=== PATIENT | male | born 1980 | race Caucasian/White ===

== ENCOUNTER 2018-11-19 19:37 | Inpatient (IN) | payer BC, OTHER ==
[~2018-11-19] VITALS: Ht 180.3 cm; Wt 86.2 kg
--- NOTE | 2018-11-19 20:30 | NUR ---
PRE ADMISSION NOTE Pt is a 38 y/o male seen at intake. Pt is A&Ox4 and ambulatory with steady gait. Pt presents with anxiety, restlessness, and is fidgety. Pt reports being anxious and states, "I hate hospitals so much and this is my first time in detox." Pt is here for methadone 20-30 mg daily, last intake of 30 mg at 1230 p.m. today. Pt has been using methadone at this rate for 2 years and total for 12 years. Pt also smokes methamphetamine 0.5-1g per week and reports using approximately 4-5 days of the week, last intake this morning. Pt has been using methamphetamine at this rate and for a total of 6-9 months. NKA, denies seizure hx, and reports PMH of anxiety and chronic back pain. Vital signs: BP 151/99, HR 150, RR 18, 02 95%, T 98.2, Pain 0/10. Pt is stable to arrive on the unit.
[2018-11-19] MEDS ORDERED: ONDANSETRON 4 MG/2 ML VIAL IM PRN (21:00)
[2018-11-19] MEDS ORDERED: ONDANSETRON ODT 4 MG TAB.RAPDIS SL PRN (21:00)
[2018-11-19] MEDS ORDERED: BUPRENORPHINE HCL 2 MG TAB.SUBL SL PRN (21:00)
[2018-11-19] MEDS ORDERED: LOPERAMIDE HCL 2 MG CAPSULE PO PRN ×2 (21:00)
[2018-11-19] MEDS ORDERED: MAGNESIUM HYDROXIDE 30 ML LIQUID UDC PO PRN (21:00)
[2018-11-19] MEDS ORDERED: ACETAMINOPHEN 325 MG TABLET PO PRN (21:00)
[2018-11-19] MEDS ORDERED: MIRALAX 17 GM POWD.PACK PO PRN (21:00)
[2018-11-19] MEDS ORDERED: MAG HYDROX/AL HYDROX/SIMETH 30 ML LIQUID UDC PO PRN (21:00)
[2018-11-19] MEDS: MULTIVITAMINS,THERAPEUTIC TABLET PO SCH (21:31)
[2018-11-19] MEDS: LORAZEPAM 1 MG TABLET PO PRN (21:31)
[2018-11-19] MEDS: diphenhydrAMINE 50 MG CAPSULE PO PRN (21:31)
--- NOTE | 2018-11-19 21:31 | NUR ---
PRN ATIVAN 2mg & PRN BENADRYL Patient reports difficulty sleeping and is currently experiencing high levels of anxiety and agitation. Patient is flushed and shaky with flight of ideas. Patient states that he fears hospitals and needles and that he feels very uncomfortable given his current situation. Patient is cooperative and willing to participate despite his anxiety. PRN Ativan 2mg given PO for agitation and restlessness, PRN Benadryl 50mg given PO for difficulty sleeping. Safety measures in place, side rails up x2, bed locked in low position, call light within reach. Will monitor for effectiveness.
--- NOTE | 2018-11-19 22:30 | NUR ---
ADMISSION NOTE Patient is a 38-year-old male admitted on 11/19/18 for medically supervised opiate (methadone) withdrawal, on the unit at 2058. Patient was seen at intake by CHANDAN Mackenzie, for the pre-admission assessment. Patient reports that he has ingested Methadone PO today, as well as methamphetamine via smoke inhalation, both earlier this afternoon. Patient is alert and oriented x4, coherent with a steady gait. Patient is mildly intoxicated with moderate discomfort noted. Patient has high anxiety, is flushed and visibly diaphoretic. Patient is hyperverbal and restless. Patient verbalizes fear of hospitals and needles. Patient reports that common withdrawal symptoms include: headaches, can't sleep, low energy, I feel like shit. Initial COWS 5. Substance Abuse History 1. Methadone 20-30mg PO daily for 3 years. Patient first started using methadone when he was 31 and was sober for one year during [id number]. Patient has been using methadone for 7 years. Last use was 11/19/18 at 1230 of 10 mg PO, and then earlier in the morning of 20mg PO. Patient states that when he first started methadone at age 31 for pain management, he started at 120mg and tapered himself down to 10mg daily, over the course of 4 years, before ceasing to use methadone for one year. Then, three years ago, patient states that his lower back pain was aggravated and he began using methadone for pain management at the current rate of 20-30mg daily PO. 2. Methamphetamine 0.5-1 gram daily via smoke inhalation, at this rate for 6 months; first started 9 months ago. Last use was 11/19/18 of approx. 0.2 gram. Patient states that he has never been to treatment or detox before. 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 I need to find better ways to deal with stress because my job is very stressful and I cant keep doing meth and taking methadone. Patient added, who starts using meth when theyre 38? 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 Patient verbalizes frustration and guilt from the many unsuccessful attempts at fertility, as well as the financial strain of all the various treatments the two have pursued. Patient became emotional and tearful when telling nurse about his struggles. Patient states he is seeking treatment today because "I need to do this." Patient elaborates, "I need to do this for myself, my son and my girlfriend. I have too much at stake. I don't want to lose it all." Patient states that part of his motivation comes from an upcoming milestone, "I'm going to be 39 this year and I really feel like I need to get my life together before 39." Patient states that his mother, brother, girlfriend and son are all his support system and he feels adequately supported. Patient states that the main barriers to maintaining sobriety would be back pain and stress, but he verbalizes willingness to address both in a healthy manner. Past medical history includes anxiety and lower back injury that has occurred over the past decade, according to patient. 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 My L4 and L5 vertebrae need surgery but Crystal been avoiding it because I dont like hospital and because Crystal heard that people are sometimes worse off after back surgery. Patient continues, Crystal been avoiding surgery but I think I might just have to do it if I want to stay off the methadone or any other pain medication. Patient reports no other medical history. Patient did have one surgery as a child, tonsillectomy, but has not been hospitalized since. Patient does not have a PCP and does not have a psychologist or psychiatrist. Patient takes a daily multivitamin, Mens One a Day, and a daily probiotic (10 billion units). Patient denies family history of substance abuse and states, "all my mom's side are smokers." But later during conversation, patient added that his brother recently went through the same thing with methadone, and hes clean now after seeking treatment. Patient lives at his home in [place] with his 14-year-old son and his girlfriend, Pia, of 12 years. Patient states he has had difficulty sleeping since he began using methamphetamines 9 months ago, but especially the past 3 months. Patient reports, I have a hard time falling asleep, staying asleep, and I wake up in a bad mood. I sleep less than 5 hours a night and its not enough for me. Patient states that he occasionally uses OTC melatonin to help him sleep, which seems to be somewhat helpful. Upon assessment, patients skin is intact, warm to touch, turgor good, capillary refill <3 seconds. Patients lung sounds are clear bilaterally to auscultation, respirations even and unlabored; patient denies SOB or chest pain. Patients bowel sounds are normoactive x4 quadrants, abdomen soft and non-tender. Patient states that he has regular bowel movements, daily, last was this morning. Patient is 511 and weighs 190lbs per standing scale. Patient is NKA, FULL code, regular diet. Patient denies smoking or the use of tobacco products; denies cannabis use. Patient denies seizure history. Patient denies physical consequences of substance abuse such as overdose, blackouts, withdrawal induced delirium or cardiac complications. Patient denies suicidal or homicidal ideation. Initial vital signs taken by CHANDAN Mackenzie as follows: HR 150, BP 151/99, RR 18/min, O2 sat 95%, temp 98.2, pain 1/10. Upon arrival to the unit, patient skin check and body search performed; no contraband found. Patient was given a tour of the unit and shown to his room. Patient provided urine for UA but has refused blood draw due to intense fear of needles. Patient was given information about plan of care and treatment program, as well as teaching regarding unit policies, procedures and protocols. Patient verbalized understanding to instructions. Patient is on fall precautions. Safety measures in place, side rails up x2, bed locked in low position, call light within reach. Will continue to monitor.
--- NOTE | 2018-11-19 22:31 | NUR ---
PRN ATIVAN 2mg & PRN BENADRYL REASSESSMENT Patient reports "I feel more comfortable and relaxed now. I even feel like I can fall asleep." Patient appears less restless and less agitated. Patient has improved vitals, with HR at 82 and BP at 126/88. PRN Ativan and PRN Benadryl noted to be effective. Safety measures in place, side rails up x2, bed locked in low position, call light within reach. Will continue to monitor.
[2018-11-19 22:35] LABS: *AMPHETAMINE, URINE POSITIVE (NEGATIVE); *BARBITURATE, URINE NEGATIVE (NEGATIVE); *CANNABINOID, URINE NEGATIVE (NEGATIVE); *COCCAINE, URINE NEGATIVE (NEGATIVE); *OPIATE, URINE NEGATIVE (NEGATIVE); *PHENCYCLIDINE SCREEN,URINE NEGATIVE (NEGATIVE)
[2018-11-19] MEDS ORDERED: MULT-416 PO (23:42)
[2018-11-19] MEDS ORDERED: LACT1CAP97 PO (23:43)
[2018-11-20] VITALS: BP 118/78
[2018-11-20 04:00] VITALS: BP 113/74
--- NOTE | 2018-11-20 07:25 | NUR ---
END OF SHIFT Patient is a 38-year-old male admitted on 11/19/18 for opiate withdrawal. Patient does not have a taper order yet, PRN medications on hand for signs and symptoms of withdrawal. Patients last COWS was 5. Patient received PRN Benadryl and PRN Ativan 2mg; both noted to be effective. Patient slept for 8 hours, total intake of 300mL, void x 1, stool x0. Patient has yet to have blood drawn due to fear of needles. Patient is on fall precautions with no history of seizure. Safety measures in place, side rails up x2, bed locked in low position, call light within reach. Will endorse to day shift.
--- NOTE | 2018-11-20 07:40 | NUR ---
START OF SHIFT Received report from night baker nurse. Pt is lying in bed resting with eyes closed and is easily arousable. He is a 38 yo male admitted to [facility] on 11/19 for Methadone withdrawal. He is A&O and ambulatory with a steady gait. NKA, full code status, and on a regular diet. PRN medications ordered for the treatment of withdrawal symptoms. Pt last used Methadone yesterday at 1200. Respirations even and unlabored. Skin is warm and moist. He reports feeling tired and his body movements are hypoactive. Minimal other s/s of withdrawal noted at this time. PRN Benadryl and Ativan administered on night baker. His last COWS score was 5. He refused labs again this morning and requested to have them done after breakfast. Pt educted regarding compliance with the treatment plan. Safety measures in place.
[2018-11-20 08:00] VITALS: BP 116/77
[2018-11-20] MEDS ORDERED: TUBERCULIN,PURIF.PROT.DERIV. 5 TU/0.1 ML TEST ID ONE (09:00)
[2018-11-20] MEDS: MULTIVITAMINS,THERAPEUTIC TABLET PO SCH (09:00)
[2018-11-20 11:51] LABS: BASOPHILS # (AUTO) 0.1 K/uL (0.0-8.0); BASOPHILS % (AUTO) 1.2 % (0.0-2.0); EOSINOPHILS # (AUTO) 0.1 K/uL (0.0-0.7); EOSINOPHILS % (AUTO) 1.4 % (0.0-7.0); HEMATOCRIT 44.5 % (36.7-47.1); HEMOGLOBIN 15.4 g/dL (12.5-16.3); LYMPHOCYTES # (AUTO) 2.7 K/uL (20.0-40.0); LYMPHOCYTES % (AUTO) 36.6 % (20.5-51.5); MEAN CORPUSCULAR HEMOGLOBIN 31.1 uug (23.8-33.4); MEAN CORPUSCULAR HGB CONC 35 g/dL (32.5-36.3); MEAN CORPUSCULAR VOLUME 89.7 fL (73.0-96.2); MONOCYTES # (AUTO) 0.8 K/uL (2.0-10.0); MONOCYTES % (AUTO) 11.3 % (0.0-11.0); NEUTROPHILS # (AUTO) 3.6 K/uL (1.8-8.9); NEUTROPHILS % (AUTO) 49.5 % (38.5-71.5); PLATELET COUNT (AUTO) 372 K/uL (152-348); RED BLOOD CELL COUNT(AUTO) 4.96 MIL/uL (4.06-5.63); WHITE BLOOD COUNT (AUTO) 7.3 K/uL (3.6-10.2)
[2018-11-20 12:00] VITALS: BP 112/73
[2018-11-20 12:01] LABS: ALANINE AMINOTRANSFERASE 36 U/L (16-63); ALKALINE PHOSPHATASE 53 U/L (50-136); ASPARTATE AMINOTRANSFERASE 22 U/L (15-37); BILIRUBIN,TOTAL 0.5 mg/dL (0.2-1.0); CARBON DIOXIDE 31 mmol/L (21-32); CHLORIDE 105 mmol/L (98-107); CREATININE 1.3 mg/dL (0.6-1.3); ETHANOL < 3 MG/DL (0-0); GLUCOSE 105 mg/dL (74-106); MAGNESIUM 1.9 mg/dL (1.8-2.4); POTASSIUM 4.4 mmol/L (3.5-5.1); TOTAL PROTEIN, SERUM 7.2 g/dL (6.4-8.2); UREA NITROGEN, BLOOD 21 mg/dL (7-18)
[2018-11-20 12:23] LABS: THYROID STIMULATING HORMONE 0.709 mIU/mL (0.358-3.740)
[2018-11-20] MEDS ORDERED: ASPI-966 PO (12:39)
[2018-11-20] MEDS: METHOCARBAMOL 750 MG TABLET PO PRN (13:31)
[2018-11-20] MEDS: CLONIDINE HCL 0.1 MG TABLET PO PRN (13:32)
[2018-11-20] MEDS: LORAZEPAM 1 MG TABLET PO PRN (13:32)
--- NOTE | 2018-11-20 13:36 | NUR ---
PRN administration:pt is starting to exhibit mild withdrawal symptoms, Per MD administer comfort medications until pt is ready D/T methadone use. PRN clonidine, 2 MG ativan and robaxin were administered, pt exhibiting restlessness, flushed skin, back pain and verbalizing he is uncomfortable. will re-assess effectiveness of medication
--- NOTE | 2018-11-20 14:40 | NUR ---
PRN Ativan, Clonidine, and Ativan reassessment PRN medications effective. Pt is lying in bed resting with eyes closed. Respirations even and unlabored.
[2018-11-20 16:30] VITALS: BP 94/60
--- NOTE | 2018-11-20 19:28 | NUR ---
END OF SHIFT Report provided to embossing press operator nurse. Pt is lying in bed resting. He is a 38 yo male admitted to [facility] on 11/19 for Methadone withdrawal. He is A&O and ambulatory with a steady gait. NKA, full code status, and on a regular diet. PRN medications ordered for the treatment of withdrawal symptoms. Pt last used Methadone yesterday at 1200. He reported some s/s of withdrawal in the afternoon. Dr. Alamo aware and on the unit to see patient. He educated patient regarding Methadone use and starting Subutex. PRN Ativan, Clonidine, and Robaxin administered. His last COWS score was 8. He drank 1157mL. He spent most of the day resting in bed. Safety measures in place.
--- NOTE | 2018-11-20 19:30 | NUR ---
Start of shift note Received report from day shift nurse. Patient is a 38 year old male admitted for Opiate withdrawal. Patient is on Subutex taper to start tomorrow. Patient in the room . Alert and oriented x 3. Patient presents with flat affect, depressed mood, face is flushed, sad, worried, and emotional. Patient reports anxiety, intermitted perspiration and fatigue. Relaxation technique provided. Safety measures in place. Will continue to monitor.
[2018-11-20 20:00] VITALS: BP 109/68
[2018-11-20] MEDS: HYDROXYZINE PAMOATE 25 MG CAPSULE PO PRN (21:25)
--- NOTE | 2018-11-20 21:25 | NUR ---
PRN Vistaril and Benadryl administration Patient reports anxiety and difficulty falling asleep. Will monitor for effectiveness
[2018-11-20] MEDS: diphenhydrAMINE 50 MG CAPSULE PO PRN (21:26)
--- NOTE | 2018-11-20 22:30 | NUR ---
PRN Vistaril and Benadryl re-assessment Patient lying in bed with eyes closed. Respiration even and unlabored. Will continue to monitor
--- NOTE | 2018-11-21 | NUR ---
COWS deferred Patient lying in bed with eyes closed. Respiration even and unlabored. Will continue to monitor
--- NOTE | 2018-11-21 04:00 | NUR ---
COWS deferred Patient lying in bed with eyes closed. Respiration even and unlabored. Will continue to monitor
[2018-11-21] MEDS ORDERED: BUPRENORPHINE HCL 2 MG TAB.SUBL SL ONE (05:45)
--- NOTE | 2018-11-21 05:45 | NUR ---
One time Subutex and PRN Vistaril administration Patient woke up c/o increased anxiety, restlessness, irritability, sweating, feeling of discomfort, back pain, stuffy nose, abdominal cramping, chills. face is flushed and piloerection. COWS 15 upon assessment .
[2018-11-21] MEDS: HYDROXYZINE PAMOATE 25 MG CAPSULE PO PRN (05:48)
--- NOTE | 2018-11-21 06:15 | NUR ---
PRN Subutex SL re-assessment Patient states Subutex and Vistaril helpful and effective. He states he feels much better.
--- NOTE | 2018-11-21 06:45 | NUR ---
PRN Vistaril re-assessment Patient states he feels much better. Vistaril helpful and effective
--- NOTE | 2018-11-21 07:25 | NUR ---
End of shift note Monitored patient throughout shift. Patient presented with flat affect, depressed mood, face is flushed, sad, worried, emotional, withdrawn and labile. Patient reported anxiety, intermitted perspiration and fatigue. Patient was given PRN Benadryl and Vistaril. At 0545, patient woke up c/o increased anxiety, restlessness, irritability, sweating, feeling of discomfort, back pain, stuffy nose, abdominal cramping, chills. face is flushed and piloerection. COWS 15 upon assessment. One time Subutex and PRN Vistaril given, both effective. Encouraged fluids. Safety measures in place. Will continue to monitor. Slept 8 hours. Fluid intake 1,000 ml. Voided x 2. No BM.
[2018-11-21] MEDS: METHOCARBAMOL 750 MG TABLET PO PRN ×2 (07:56→16:19)
[2018-11-21] MEDS: IBUPROFEN 600 MG TABLET PO PRN ×2 (07:56→16:19)
[2018-11-21] MEDS: MULTIVITAMINS,THERAPEUTIC TABLET PO SCH (07:56)
[2018-11-21 08:00] VITALS: BP 116/73
--- NOTE | 2018-11-21 08:03 | NUR ---
START OF SHIFT: Received Pt A? O X 4. He presents with blunted affect and sad mood. He denies S/I and H/I. He reports anxiety,back pain 6/10 on scale aches and pain. Encouraged inc,sweats and muscle aches. COWS 9 PRN Robaxin and Motrin given to manage muscle aches and pain. Encouraged group attendance to improve coping skills and prevent relapse. Encouraged increased fluids to assist in facilitating detox process. Will continue to monitor and offer support.
[2018-11-21 08:07] LABS: HEPATITIS B SURFACE AG Negative (Negative)
--- NOTE | 2018-11-21 09:05 | NUR ---
Pt reports Motrin and Robaxin were mildly effective. Pain 2/10 on scale.
[2018-11-21 12:00] VITALS: BP 115/79
[2018-11-21] MEDS ORDERED: 5 DAY TAPER BUPRENORPHINE -SERENITY PROTOCOL SL PRN (13:00)
--- NOTE | 2018-11-21 15:32 | NUR ---
Therapist prompted client to attend group therapy.
[2018-11-21 16:00] VITALS: BP 124/65
[2018-11-21] MEDS: BUPRENORPHINE HCL 2 MG TAB.SUBL SL SCH ×2 (16:20→20:20)
--- NOTE | 2018-11-21 16:25 | NUR ---
Subutex taper started and administered. PRN Ibuprofen and PRN Robaxin administered to relieve back pain 5/10 and body aches.Will monitor effectiveness.
--- NOTE | 2018-11-21 17:25 | NUR ---
PRN Ibuprofen and PRN Robaxin effective. He reports pain 2/10 and body aches have lessened.
--- NOTE | 2018-11-21 19:04 | NUR ---
END OF SHIFT; Pt started Subutex taper to manage s/s of w/d which include body aches,back pain,chills ,sweats,anxiety and restlessness. Last COWS 10. He was given Motrin and Robaxin PRN X 2 to manage aches and pain and effective. He was compliant with increased fluids and isolated in his room most of shift. Will pass shift report to oncoming evening or night nurse supervisor nurse.
--- NOTE | 2018-11-21 19:30 | NUR ---
Start of shift note Received report from day shift nurse. Patient is a 38 year old male admitted for Opiate withdrawal. Patient was placed on Subutex taper, started today. Patient was given Motrin x 2 and Robaxin x 2. Last COWS 10. Patient in the room . Alert and oriented x 3. Patient presents with flat affect, depressed mood, face is flushed, sad, worried, and emotional. Patient reports anxiety, intermitted perspiration and fatigue. Relaxation technique provided and positive encouragement provided. Safety measures in place. Will continue to monitor.
[2018-11-21 20:00] VITALS: BP 126/85
[2018-11-21] MEDS: diphenhydrAMINE 50 MG CAPSULE PO PRN (20:20)
--- NOTE | 2018-11-21 20:20 | NUR ---
PRN Benadryl administration Patient requests for sleep aid. Will monitor for effectiveness
--- NOTE | 2018-11-21 22:00 | NUR ---
PRN Benadryl re-assessment Patient lying in bed with eyes closed. Respiration even and unlabored. Will continue to monitor
[2018-11-22] VITALS: BP 122/70
--- NOTE | 2018-11-22 | NUR ---
COWS deferred Patient lying in bed with eyes closed. Respiration even and unlabored. Will continue to monitor
[2018-11-22 04:00] VITALS: BP 113/75
--- NOTE | 2018-11-22 04:00 | NUR ---
COWS deferred Patient lying in bed with eyes closed. Respiration even and unlabored. Will continue to monitor
[2018-11-22] MEDS: IBUPROFEN 600 MG TABLET PO PRN (04:56)
[2018-11-22] MEDS: METHOCARBAMOL 750 MG TABLET PO PRN (04:56)
[2018-11-22] MEDS: HYDROXYZINE PAMOATE 25 MG CAPSULE PO PRN ×2 (04:56→13:25)
--- NOTE | 2018-11-22 04:56 | NUR ---
PRN Robaxin, Motrin and Vistaril administration Patient reports anxiety and back pain. Will monitor for effectiveness
--- NOTE | 2018-11-22 05:56 | NUR ---
PRN Robaxin, Motrin and Vistaril re-assessment Patient states medication are helpful and effective. He is less anxious and pain is lessened
--- NOTE | 2018-11-22 07:28 | NUR ---
End of shift note Patient alert and oriented x 4 . Patient presented with flat affect, depressed mood, face is flushed, sad, worried, and emotional. Patient reports anxiety, intermitted perspiration . Scheduled taper given as ordered. PRN Benadryl given for sleep. At 0456, patient woke up and was c/o anxiety and back pain. PRN Vistaril, Robaxin and Motrin given, effective. Safety measures in place. Will continue to monitor. Slept 6 hours. Fluid intake 1,200 ml. Voided x 3. No BM.
[2018-11-22 08:00] VITALS: BP 142/86
--- NOTE | 2018-11-22 08:07 | NUR ---
START OF SHIFT: Received Pt A/ O X 4. He presents fidgety with anxious mood and congruent affect. He reports anxiety,irritability,intermittent sweats and muscle aches. COWS 8. Encouraged group attendance to improve coping skills and prevent relapse. Encouraged increased fluids to assist in facilitating detox process. Will continue to monitor and offer support.
[2018-11-22] MEDS: MULTIVITAMINS,THERAPEUTIC TABLET PO SCH (08:43)
[2018-11-22] MEDS: BUPRENORPHINE HCL 2 MG TAB.SUBL SL SCH ×3 (08:43→20:16)
--- NOTE | 2018-11-22 09:46 | NUR ---
Therapist prompted client to attend all group therapy sessions.
--- NOTE | 2018-11-22 11:18 | NUR ---
Therapist prompted client to attend group therapy.
[2018-11-22 12:00] VITALS: BP 109/65
--- NOTE | 2018-11-22 13:26 | NUR ---
PRN Vistaril 50 mg PO given to manage reported anxiety and restlessness. Will monitor effectiveness
--- NOTE | 2018-11-22 14:30 | NUR ---
PRN Vistaril effective. Pt states his anxiety lessened.
[2018-11-22 16:00] VITALS: BP 129/91
[2018-11-22] MEDS: CLONIDINE HCL 0.1 MG TABLET PO PRN (17:14)
--- NOTE | 2018-11-22 18:41 | NUR ---
END OF SHIFT; Pt is on Subutex taper to manage s/s of w/d which include body aches, intermittent sweats,anxiety and restlessness. He becomes tearful ,sad and emotional and discussed how much he misses his family.Offered support. Encouraged him to stay and complete treatment plan. Last COWS 7. He was given Vistaril PRN to manage anxiety and it was effective. He was compliant with increased fluids and isolated in his room most of shift. Will pass shift report to oncoming hourly shift manager nurse.
--- NOTE | 2018-11-22 19:25 | NUR ---
START OF SHIFT Patient is a 38-year-old male admitted on 11/19/18 for opiate withdrawal. Patient is currently on a 5-day Subutex taper, tolerating well. Patient received PRN Vistaril and Clonidine today, but stated, they didnt do anything for me. Patients last COWS was 7 per endorsement. Upon assessment, patient reports increased anxiety related to the phone call he made prior to change of shift. Patient is tearful and emotional stating, I wanted to go straight home after detox but my girlfriend said I needed to go to treatment. I know shes right but I miss her and my son so much. Patient is curled up in bed, fidgety, slightly diaphoretic and with a look of resignation. Patient is on fall precautions with no history of seizure. Safety measures in place, side rails up x2, bed locked in low position, call light within reach. Will continue to monitor.
[2018-11-22] MEDS: diphenhydrAMINE 50 MG CAPSULE PO PRN (19:32)
--- NOTE | 2018-11-22 19:32 | NUR ---
PRN BENADRYL Patient states that the PRN Vistaril was not effective for anxiety and requested PRN Benadryl instead "so I can just sleep." PRN Benadryl 50mg given PO. Safety measures in place, side rails up x2, bed locked in place, call light within reach. Will monitor for effectiveness.
[2018-11-22 20:00] VITALS: BP 118/73
--- NOTE | 2018-11-22 20:32 | NUR ---
PRN BENADRYL REASSESSMENT Patient is observed in bed with eyes closed, respirations even and unlabored. PRN Benadryl noted to be effective. Safety measures in place, side rails up x2, bed locked in low position, call light within reach. Will continue to monitor.
[2018-11-23] VITALS: BP 112/69
[2018-11-23 04:00] VITALS: BP 109/68
[2018-11-23] MEDS: CLONIDINE HCL 0.1 MG TABLET PO PRN ×2 (04:33→22:59)
[2018-11-23] MEDS: IBUPROFEN 600 MG TABLET PO PRN ×2 (04:34→14:05)
--- NOTE | 2018-11-23 04:34 | NUR ---
PRN MOTRIN & CLONIDINE Patient reports chills, sweats, anxiety and headache 6/10 on pain scale. PRN Motrin and PRN Clonidine given PO. Safety measures in place, side rails up x2, bed locked in low position, call light within reach. Will monitor for effectiveness.
--- NOTE | 2018-11-23 05:34 | NUR ---
PRN MOTRIN & CLONIDINE REASSESSMENT Patient is observed sleeping in bed, eyes closed, respirations even and unlabored. Unable to reassess medication effectiveness at this time. Safety measures in place, side rails up x2, bed locked in low position, call light within reach. Will continue to monitor.
--- NOTE | 2018-11-23 07:15 | NUR ---
END OF SHIFT Patient is a 38-year-old male admitted on 11/19/18 for opiate withdrawal. Patient is currently on a 5-day Subutex taper, tolerating well. Today will be day 3 of taper. Patient received PRN Benadryl, noted to be effective. Patient later received PRN Motrin and Clonidine at 0430; noted to be effective. Patients last COWS was 7. Patient slept for 7 hours, total intake of 1,500mL, void x3, stool x0. Patient is on fall precautions with no history of seizure. Safety measures in place, side rails up x2, bed locked in low position, call light within reach. Will endorse to day shift.
--- NOTE | 2018-11-23 07:30 | NUR ---
Start of Shift Notes: Received endorsement from night nurse. Patient is a 38 year old male admitted for opiate withdrawal who was placed on a 5-day Subutex taper as ordered. No adverse reactions noted. Per night report, patient was given PRN Benadryl, Clonidine and Motrin during the night. Slept for 7 hours. Last COWS 7. Received patient in his room. Alert and verbally responsive. Oriented x 4. Denies S/I or H/I. No AV hallucinations noted. He is awake, emotionally labile. He states "I am missing home." He complains of chills, hot flashes, facial flushing noted, gross tremors, complains of intermittent sweating and complains of strong cravings. Redirected as needed. Educated patient on his current plan of care for the day and his medication regimen. Encouraged oral fluid intake and encouraged group participation to learn new skills to prevent relapse. Will continue to monitor.
[2018-11-23 08:00] VITALS: BP 108/54
[2018-11-23] MEDS: MULTIVITAMINS,THERAPEUTIC TABLET PO SCH (08:31)
[2018-11-23] MEDS ORDERED: BUPRENORPHINE HCL 2 MG TAB.SUBL SL SCH (09:00)
[2018-11-23 12:00] VITALS: BP 119/73
[2018-11-23] MEDS: BUPRENORPHINE HCL 2 MG TAB.SUBL SL SCH ×2 (14:05→20:39)
--- NOTE | 2018-11-23 14:05 | NUR ---
Motrin 600 mg PO given: Patient complained of a 5/10 headache. Non-pharmacological interventions provided but ineffective. Medicated patient with Motrin 600 mg PO as ordered. Will monitor for effectiveness.
--- NOTE | 2018-11-23 15:05 | NUR ---
Re-assessment: Motrin Patient verbalizes relief from headache and rates his pain a zero out of ten. PRN Motrin effective.
[2018-11-23 16:00] VITALS: BP 108/78
--- NOTE | 2018-11-23 19:11 | NUR ---
End of Shift Notes: Patient continues to be on 5-day Subutex taper as ordered. No adverse reactions noted. VS monitored closely. No significant abnormalities noted. Withdrawal symptoms were closely monitored. Initial COWS 10, patient presented with chills, hot flashes, facial flushing, anxiety, irritability, emotionally labile and generalized discomfort. Last COWS 8. Patient verbalizes that Subutex has been effective in reducing his withdrawal symptoms. He was able to participate in group and activities despite his withdrawal symptoms. Appetite good. All needs met and attended. Will continue to monitor closely. Addendum: 11/23/18 at 1916 by LACHELLE ARREGUIN LVN Additional end of shift note: PRN Motrin 600 mg PO given at 1405 for headache with help.
--- NOTE | 2018-11-23 19:30 | NUR ---
Start of shift note Pt is a 38 year old male admitted on 11/19/18 for medically supervised opiate withdrawal. Pt is on a 5 day Subutex taper started on 11/21/18. Pts last COWS was 8. Per endorsement pt had PRN Motrin during day shift. Pt has been compliant with plan of care and has attended treatment group. Pt continues to experience anxiety, agitation and mild tremors. Upon rounds pt was noted in room watching tv, explained plan of care and he verbalized understanding. Safety measures in place, bed locked in low position, side rails up x2, and call light within reach. Will continue to monitor.
[2018-11-23 20:00] VITALS: BP 122/79
[2018-11-23] MEDS: diphenhydrAMINE 50 MG CAPSULE PO PRN (20:39)
--- NOTE | 2018-11-23 20:39 | NUR ---
PRN Benadryl Pt was reporting difficulty falling asleep, administered PRN Benadryl and pt tolerated well and will continue to monitor. Pt in bed resting with lights off and watching tv, breathing is even and unlabored with no signs of distress. safety measures in place.
--- NOTE | 2018-11-23 21:39 | NUR ---
MARTIN Derasadryl Reassessment Pt was noted in bed resting with lights off but could not fall asleep r/t anxiety. Medication noted not to be effective. Will provide medication for anxiety. Pt is breathing even and unlabored and will continue to monitor. Safety measures in place.
[2018-11-23] MEDS: HYDROXYZINE PAMOATE 25 MG CAPSULE PO PRN (22:59)
--- NOTE | 2018-11-23 22:59 | NUR ---
PRN Clonidine and Vistaril Pt was presenting with anxiety and agitation and was not allowing pt to go to sleep. Administered PRN Clonidine and Vistaril and pt tolerated well. Safety measures in place and will continue to monitor.
--- NOTE | 2018-11-23 23:59 | NUR ---
PRN Clonidine and Vistaril Reassessment Pt was noted in bed resting with eyes closed, breathing even and unlabored. Medication noted to be successful. Safety measures in place and will continue to monitor.
--- NOTE | 2018-11-24 07:17 | NUR ---
End of shift note Pt is a 38 year old male admitted on 11/19/18 for medically supervised opiate withdrawal. Pt completed a 5 day Subutex taper. Pts last COWS was 9. Pt is on fall precautions. Pt had PRN Benadryl, Clonidine and Vistaril during this shift. Pt continues to present with anxiety, agitation and tremors. Pt was compliant with medication regimen and treatment plan. Pt slept for 5 hours and had a total of 1,473 ml. Pt voided x 1 and had no bowel movements during this shift. Safety measures in place, bed locked in low position, side rails up x2, and call light within reach. Will endorse to day shift.
--- NOTE | 2018-11-24 07:30 | NUR ---
Start of shift note; Received report from night nurse. Patient is a 38 year old male admitted on 11/19/18 for Opiate withdrawal. Patient is AXO4, presented with anxiety, complaining of intermittent sweats, muscle aches, chills, generalized discomfort and fatigue. Patient slept for 5 hours. Last COWS score reported was 9. Patient is high risk for AMA. Patient verbalized "I want to go home, i really miss my son. I am feeling better today, i think i can go home now so i can be with my son". Educated patient regarding the importance of compliance to treatment and medication regime, patient verbalized understanding. All safety measures secured. Will continue to monitor patient.
[2018-11-24 08:00] VITALS: BP 117/74
[2018-11-24] MEDS: MULTIVITAMINS,THERAPEUTIC TABLET PO SCH (08:17)
[2018-11-24] MEDS: BUPRENORPHINE HCL 2 MG TAB.SUBL SL SCH ×3 (08:18→20:19)
[2018-11-24] MEDS: HYDROXYZINE PAMOATE 25 MG CAPSULE PO PRN (09:55)
--- NOTE | 2018-11-24 09:55 | NUR ---
PRN medication; Patient is AOx4, patient appears very anxious, patient pacing back and forth in the room and hallway. PRN Vistaril 50 mg PO given for anxiety. Will continue to monitor patient.
--- NOTE | 2018-11-24 10:55 | NUR ---
Re-assessment; Patient appears calm and comfortable. PRN medication noted to be effective.
[2018-11-24 12:00] VITALS: BP 123/85
--- NOTE | 2018-11-24 12:29 | NUR ---
Therapist prompted client to attend group therapy.
[2018-11-24 16:00] VITALS: BP 108/58
--- NOTE | 2018-11-24 16:21 | NUR ---
RT prompted pt to attend groups.
--- NOTE | 2018-11-24 18:19 | NUR ---
End of shift note; Patient is AXO4, presented with anxiety, complaining of intermittent sweats, muscle aches, chills, generalized discomfort and fatigue. Patient's last COWS score is 11 at 1600. Patient remained compliant with treatment plan and medication regime. Medications were effective in reducing withdrawal symptoms. All safety measures secured. Met all needs.
--- NOTE | 2018-11-24 19:30 | NUR ---
START OF SHIFT Patient is a 38-year-old male admitted on 11/19/18 for methadone withdrawal. Patient is currently on a 5-day Subutex taper, tolerating well; today is day 4. Patient received PRN Vistaril earlier today, noted to be effective. Last COWS was 11. Upon assessment, patient states, I had a bad day today, I wanted to leave AMA this morning but I didnt. I just miss my family and Im home sick. But I got to talk to my family on the phone today, they even let me have my cell phone for a little bit and I got to get my finances in order. I feel better now and I know Im staying until Tuesday. Patient reports anxiety and restlessness with missing his girlfriend and son, but verbalizes his willingness to finish his taper before discharging on Tuesday. Patient states, I just want to take my meds soon and go to sleep early. Patient is on fall precautions with no history of seizure. Safety measures in place, side rails up x2, bed locked in low position, call light within reach. Will continue to monitor.
[2018-11-24 20:00] VITALS: BP 123/78
[2018-11-24] MEDS: diphenhydrAMINE 50 MG CAPSULE PO PRN (20:19)
--- NOTE | 2018-11-24 20:19 | NUR ---
PRN BENADRYL Patient reports difficulty sleeping and requests sleep aid. PRN Benadryl 50mg given PO. Safety measures in place, side rails up x2, bed locked in low position, call light within reach. Will monitor for effectiveness.
--- NOTE | 2018-11-24 21:19 | NUR ---
PRN BENADRYL REASSESSMENT Patient is observed in bed sleeping, eyes closed and lights off, respirations even and unlabored. PRN Benadryl noted to be effective. Safety measures in place, side rails up x2, bed locked in low position, call light within reach. Will continue to monitor.
[2018-11-25] VITALS: BP 110/69
--- NOTE | 2018-11-25 04:00 | NUR ---
VITALS REFUSED Patient refused vitals at this time. Respirations even and unlabored, 16/min. Safety measures in place, side rails up x2, bed locked in low position, call light within reach. Will continue to monitor.
--- NOTE | 2018-11-25 07:15 | NUR ---
END OF SHIFT Patient is a 38-year-old male admitted on 11/19/18 for methadone withdrawal. Patient is currently on a 5-day Subutex taper, tolerating well; today will be the last day of taper. Patient received PRN Benadryl today, noted to be effective. Last COWS was 10. Patient slept for 7 hours, total intake of 1,355mL, void x2, stool x0. Patient is on fall precautions with no history of seizure. Safety measures in place, side rails up x2, bed locked in low position, call light within reach. Will endorse to day shift.
--- NOTE | 2018-11-25 07:30 | NUR ---
Start of Shift Notes: Received endorsement from night nurse. Patient is a 38 year old male admitted for opiate withdrawal who was placed on a 5-day Subutex taper as ordered. No adverse reactions noted. Per night report, patient was given PRN Benadryl during the night. Slept for 7 hours. Last COWS . Received patient in his room. Alert and verbally responsive. Oriented x 4. Denies S/I or H/I. No AV hallucinations noted. He is awake, emotionally labile. He is restless and flushed. He currently complains of anxiety. Stating "I don't feel good today. I have anxiety. I am very anxious. I miss my son." He complains of chills, hot flashes, facial flushing noted, gross tremors, complains of intermittent sweating and complains of strong cravings. Redirected as needed. Educated patient on his current plan of care for the day and his medication regimen. Encouraged oral fluid intake and encouraged group participation to learn new skills to prevent relapse. Will continue to monitor.
[2018-11-25 08:00] VITALS: BP 127/81
[2018-11-25] MEDS: CLONIDINE HCL 0.1 MG TABLET PO PRN ×2 (08:00→20:41)
[2018-11-25] MEDS: METHOCARBAMOL 750 MG TABLET PO PRN ×2 (08:00→20:41)
[2018-11-25] MEDS: HYDROXYZINE PAMOATE 25 MG CAPSULE PO PRN ×2 (08:00→23:05)
[2018-11-25] MEDS: MULTIVITAMINS,THERAPEUTIC TABLET PO SCH (08:00)
--- NOTE | 2018-11-25 08:00 | NUR ---
Clonidine 0.1mg/Robaxin 750mg/Vistaril 50 mg PO given: Patient complains of chills, hot flashes, sweats, myalgia of 5/10 and increased anxiety and agitation with restlessness. Non-pharmacological interventions provided but ineffective. Medicated patient with Clonidine 0.1mg PO, Vistaril 50 mg and Robaxin 750mg PO as ordered. Will monitor for effectiveness.
[2018-11-25] MEDS ORDERED: BUPRENORPHINE HCL 2 MG TAB.SUBL SL SCH (09:00)
--- NOTE | 2018-11-25 09:00 | NUR ---
Re-assessment: Clonidine/Robaxin and Vistaril Patient reports relief from chills, hot flashes, and mild anxiety still noted and myalgia is now a 2 out of 10. PRN Vistaril, Clonidine and Robaxin effective.
[2018-11-25 12:00] VITALS: BP 103/69
[2018-11-25] MEDS ORDERED: NALO4SPR NS (14:39)
[2018-11-25] MEDS ORDERED: HYDR-3895 PO (14:39)
[2018-11-25] MEDS ORDERED: DIPH50CA37 PO (14:39)
[2018-11-25] MEDS ORDERED: CLON0.1T14 PO (14:39)
[2018-11-25] MEDS ORDERED: METH-406 PO (14:39)
[2018-11-25 16:00] VITALS: BP 108/75
[2018-11-25] MEDS: IBUPROFEN 600 MG TABLET PO PRN (16:31)
--- NOTE | 2018-11-25 16:31 | NUR ---
Motrin 600 mg PO given: Patient complained of 5/10 headache. Non-pharmacological interventions provided but ineffective. Medicated patient with Motrin 600 mg PO as ordered. Will monitor for effectiveness.
--- NOTE | 2018-11-25 17:31 | NUR ---
Re-assessment: Motrin Patient verbalizes that PRN Motrin was effective in relieving headache and rates his pain as a 0 out of 10. PRN Motrin effective.
--- NOTE | 2018-11-25 18:47 | NUR ---
End of Shift Notes: Patient completed his 5-day Subutex taper successfully. No adverse reactions noted. VS monitored closely. No significant abnormalities noted. Withdrawal symptoms were closely monitored. Initial COWS 10, patient presented with chills, hot flashes, headache, facial flushing, increased anxiety, irritability, emotionally labile and generalized discomfort. Medicated patient with Vistaril, Clonidine and Robaxin at 0800 and Motrin 600 mg PO at 1631 with help after 1 hour. Last COWS 6. Patient verbalizes that Subutex has been effective in reducing his withdrawal symptoms. He was able to participate in group and activities despite his withdrawal symptoms. Appetite good. All needs met and attended. Will continue to monitor closely.
--- NOTE | 2018-11-25 19:30 | NUR ---
Start of shift note Pt is a 38 year old male admitted on 11/19/18 for medically supervised opiate withdrawal. Pt completed a 5 day Subutex taper. Pts last COWS was 6. Per endorsement pt had PRN Clonidine, Vistaril, Robaxin and Motrin during day shift. Pt is being discharge tomorrow 11/26/18. Pt has been compliant with plan of care and has attended treatment group. Pt continues to experience anxiety, agitation and mild tremors. Upon rounds pt was noted in room watching tv, explained plan of care and he verbalized understanding. Pt is breathing even and unlabored with no s/s of distress. Safety measures in place, bed locked in low position, side rails up x2, and call light within reach. Will continue to monitor.
[2018-11-25 20:00] VITALS: BP 133/82
[2018-11-25] MEDS: diphenhydrAMINE 50 MG CAPSULE PO PRN (20:41)
--- NOTE | 2018-11-25 20:41 | NUR ---
PRN Benadryl, Clonidine and Robaxin Pt was reporting difficulty falling asleep, anxiety, agitation and bodyaches. Administered PRN Benadryl, Clonidine and Robaxin and pt tolerated well. Pt in bed resting with lights off and watching tv, breathing is even and unlabored with no signs of distress. Safety measures in place.
--- NOTE | 2018-11-25 21:41 | NUR ---
PRN Benadryl, Clonidine and Robaxin Reassessment Pt noted to be in bed resting with eyes closed, breathing even and unlabored. Medication noted to be effective. Lights and tv were off. Safety measures in place. Will continue to monitor.
--- NOTE | 2018-11-25 23:05 | NUR ---
PRN Vistaril Pt woke up and states he feels nervous and anxious due to his discharged, administered PRN Vistaril. Pt tolerated well and will continue to monitor.
--- NOTE | 2018-11-26 00:05 | NUR ---
PRN Vistaril Reassessment Pt noted to be in bed resting with eyes closed, breathing even and unlabored. Medication noted to be effective. Safety measures in place. Will continue to monitor.
--- NOTE | 2018-11-26 07:19 | NUR ---
End of shift note Pt is a 38 year old male admitted on 11/19/18 for medically supervised opiate withdrawal. Pt completed a 5 day Subutex taper. Pts last COWS was 7. Pt is on fall precautions. Pt had PRN Benadryl, Clonidine, Robaxin and Vistaril during this shift. Pt continues to present with sweats, restlessness, anxiety, agitation, tremors, and mild bodyaches. Pt was compliant with plan of care. Pt is being discharged today 11/26/18. Pt slept for 7 hours and had a total of 1,168 ml. Pt voided x 3 and had no bowel movements during this shift. Safety measures in place, bed locked in low position, side rails up x2, and call light within reach. Will endorse to day shift.
--- NOTE | 2018-11-26 07:20 | NUR ---
Start of Shift Notes: Received endorsement from night nurse. Patient is a 38 year old male admitted for opiate withdrawal who was placed on a 5-day Subutex taper as ordered. No adverse reactions noted. Per night report, patient was given PRN Benadryl, Clonidine, Robaxin and Vistaril during the night. Slept for 7 hours. Last COWS 7. Received patient in his room. Alert and verbally responsive. Oriented x 4. Denies S/I or H/I. No AV hallucinations noted. He is awake, alert and oriented x 4. Noted with facial flushing and complains of fatigue/malaise. Redirected as needed. Educated patient on the discharge process. He verbalized good understanding. Will continue to monitor.
[2018-11-26 08:00] VITALS: BP 126/71
[2018-11-26] MEDS: MULTIVITAMINS,THERAPEUTIC TABLET PO SCH (08:09)
--- NOTE | 2018-11-26 09:27 | NUR ---
Discharge: Patient education provided regarding his discharge instructions. Patient verbalized good understanding of all teachings. VSS. COWS 7. Denies AV hallucinations. Denies S/I or H/I noted. All clothing, medication and valuables were returned to the patient. ALl necessary dc paperwork signed and placed inside blue and black duffel bag. sewer maintenance supervisor by [facility] staff to be transported to [facility]. Escorted off the unit.
== END 2018-11-26 09:27 | disposition other institution (70) | DRG 895 ==
LOC: SRC 19:52
PROVIDERS: ADMIT Internal Medicine; ATTEND Family Medicine Addiction Medicine
PROC: HZ2ZZZZ Detoxification Services for Substance Abuse Treatment (ICD-10-PCS; principal; 2018-11-19)
PROC: HZ41ZZZ Group Counseling for Substance Abuse Treatment, Behavioral (ICD-10-PCS; 2018-11-22)
PROC: HZ31ZZZ Individual Counseling for Substance Abuse Treatment, Behavioral (ICD-10-PCS; 2018-11-22)
DX: F11.23 Opioid dependence with withdrawal (principal); F41.1 Generalized anxiety disorder; G89.29 Other chronic pain; M54.5 Low back pain; G47.00 Insomnia, unspecified; Z81.3 Family history of other psychoactive substance abuse and dependence; Z87.891 Personal history of nicotine dependence; F15.23 Other stimulant dependence with withdrawal
CPT/HCPCS: 36415; 70030-TC; 80307; 80324; 83735; 84443; 85025; 86592; 86705; 86803; 87340; 87806; G0480; Q0163